=== PATIENT | female | born 1965 | race Two or more races ===

== ENCOUNTER → 2024-10-06 | Outpatient (CLI) | payer OTHER, SELFPAY ==
--- NOTE | 2024-10-06 15:30 | XR_ITS ---
Examination: Screening digital mammography, bilateral Computer aided detection 3-D breast Tomosynthesis, bilateral Date and time of exam: October 06, 2024 at 1529 hours Compared to mammograms dating to 06/09/2021 Indication: Screening Technique: Nonmagnified MLO, CC views of the breasts to been obtained, reconstructed from 3-D Tomosynthesis images. R2 computer aided detection program utilized for evaluation of suspicious masses and/or abnormal calcifications. 3-D Tomosynthesis images obtained. Findings: The breasts are heterogeneously dense, which may obscure small masses Grouped microcalcifications upper outer right breast posterior depth Grouped microcalcifications inner upper left breast Impression: BI-RADS Category 0: Incomplete: Need additional imaging evaluation Grouped microcalcifications upper outer right breast posterior depth Grouped microcalcifications inner upper left breast Recommend follow-up magnification views of these calcifications as well as bilateral breast sonography to complete the workup
== END | disposition home or self-care (01) ==
LOC: CDIM 15:15
PROVIDERS: Referring Provider Nurse Practitioner Family; Visit Provider Nurse Practitioner Family
DX: Z12.31 Encounter for screening mammogram for malignant neoplasm of breast (principal); R92.8 Other abnormal and inconclusive findings on diagnostic imaging of breast; R92.0 Mammographic microcalcification found on diagnostic imaging of breast
CPT/HCPCS: 77063; 77067

== ENCOUNTER → 2024-11-14 | Outpatient (CLI) | payer OTHER, SELFPAY ==
--- NOTE | 2024-11-14 09:30 | XR_ITS ---
Examination: Breast ultrasound complete, bilateral Date and time of exam: November 06, 2024 0950 hrs. Indications: Mammogram October 06, 2024 grouped microcalcifications upper outer right breast posterior depth grouped microcalcifications inner upper left breast Technique: Real-time grayscale ultrasonographic imaging bilateral breasts, including all 4 quadrants as well as nipple retroareolar and axillary regions. Findings: Sonographic images right breast 9:00 oval mass 5 x 7 mm circumscribed Sonographic images left breast 3:00 cyst 5 x 5 x 5 mm no solid nodules Impression: BI-RADS Category 3: Probably benign findings. Recommend 1 additional 6 month right breast sonogram follow-up to document stability of 9:00 nodule described above)
--- NOTE | 2024-11-14 10:30 | XR_ITS ---
Examination: Diagnostic digital mammography, bilateral Computer aided detection 3-D breast Tomosynthesis, bilateral Date and time of exam: 11/14/2024, 10:14 AM Comparisons: May 2021 through October 2024 Indications:Further evaluation of calcifications seen in the recent screening exam Technique: Nonmagnified MLO, CC views of the breasts to been obtained, reconstructed from 3-D Tomosynthesis images. R2 computer aided detection program utilized for evaluation of suspicious masses and/or abnormal calcifications. 3-D Tomosynthesis images obtained. Findings: The breasts are heterogeneously dense, which may obscure small masses. Grouped heterogeneous calcifications right upper outer quadrant, some of which appear coarse. Grouped heterogeneous calcifications left upper inner quadrant, some of which appear coarse. Scattered bilateral benign-appearing punctate calcifications. Impression: Bilateral grouped heterogeneous calcifications as described above. Findings are probably benign and may represent calcifying fibroadenomas. Six-month follow-up bilateral diagnostic mammogram with spot magnification views recommended. BI-RADS category 3: Probably benign, short term follow-up
== END | disposition home or self-care (01) ==
LOC: CDIM 09:27
PROVIDERS: Referring Provider Nurse Practitioner Family; Visit Provider Nurse Practitioner Family
DX: R92.333 Mammographic heterogeneous density, bilateral breasts (principal); R92.1 Mammographic calcification found on diagnostic imaging of breast; N63.15 Unspecified lump in the right breast, overlapping quadrants
CPT/HCPCS: 76641; 77062; 77066; G0279

== ENCOUNTER → 2025-05-15 | Outpatient (CLI) | payer OTHER, SELFPAY ==
--- NOTE | 2025-05-15 11:00 | XR_ITS ---
Examination: Breast ultrasound, unilateral, right complete Date and time of exam: May 15, 2025 1056 hours INDICATIONS: Ultrasound November 14, 2024 9:00 nodule right breast 7 mm, grouped microcalcifications heterogeneous on the mammogram November 14, 2024 Technique: Real-time gan scale ultrasonographic imaging performed right breast including all 4 quadrants as well as nipple retroareolar and axillary region. Findings: Multiple benign cysts. The largest cyst is in the 10:00 position, 12 x 10 mm No solid nodules IMPRESSION: BI-RADS Category 2: Benign findings
--- NOTE | 2025-05-15 11:30 | XR_ITS ---
Examination: Diagnostic digital mammography, bilateral Computer aided detection 3-D breast Tomosynthesis, bilateral Date and time of exam: 05/15/2025, 11:14 AM Comparisons: June 2022 through October 2024 Indications:Interval follow-up of bilateral calcifications. Technique: Nonmagnified MLO, CC views of the breasts to been obtained, reconstructed from 3-D Tomosynthesis images. R2 computer aided detection program utilized for evaluation of suspicious masses and/or abnormal calcifications. 3-D Tomosynthesis images obtained. Findings: The breasts are heterogeneously dense, which may obscure small masses. Stable grouped coarse and punctate calcifications. Diffuse punctate calcifications bilaterally No evidence of suspicious masses or suspicious calcifications. Impression: BI-RADS category 2: Benign findings Recommend 1 year follow-up mammogram
== END | disposition home or self-care (01) ==
LOC: CDIM 10:38
PROVIDERS: Referring Provider Nurse Practitioner Family; Visit Provider Nurse Practitioner Family
DX: R92.323 Mammographic fibroglandular density, bilateral breasts (principal)
CPT/HCPCS: 76641; 77062; 77066; G0279